=== PATIENT | female | born 1975 | race Caucasian/White ===

== ENCOUNTER 2018-06-09 06:26 | Day surgery (SDC) | payer BC ==
[~2018-06-09 06:26] MED LIST: Lactated Ringers 1,000 ML IV SCH; Sodium Chloride 0.9% 10 ML Syringe FLUSH PRN; Sodium Chloride 0.9% 2.5 ML Syringe FLUSH PRN; ceFAZolin 1 GM in Premix Bag 1 BAG IV ONE
--- NOTE | 2018-06-09 06:48 | PCM.PREANE ---
Preanesthetic Assessment - Procedure Proposed Procedure: excision lipoma left axilla - Anesthesia/Transfusion/Family Hx Anesthesia History: Prior Anesthesia Without Reaction (oral surgery (office), C- section and Tubal Ligation under spinal anesthesia. : No anesthesia issues noted. No history of General Anesthesia.) Family History of Anesthesia Reaction: No Transfusion History: No Prior Transfusion(s) - Review of Systems General: No Symptoms (vitiligo on back) Pulmonary: No Symptoms (smoker-one cigarette per day) Cardiovascular: No Symptoms Gastrointestinal: No Symptoms (NO GERD) Neurological: No Symptoms (history of depression--no meds at present, just counselling) Other: Reports: None - Physical Assessment NPO Status Date: 06/09/18 NPO Status Time: 04:30 (sip of water) Pulse: 48 O2 Sat by Pulse Oximetry: 100 Respiratory Rate: 15 Blood Pressure: 114/69 Temperature: 36.7 C Height: 1.65 m Weight: 72.575 kg ASA Class: 2 Mental Status: Alert & Oriented x3 Airway Class: Mallampati = 1 Dentition: Reports: Normal Dentition Thyro-Mental Finger Breadths: 2 Mouth Opening Finger Breadths: 3 ROM/Head Extension: Full Lungs: Clear to Auscultation, Normal Respiratory Effort Cardiovascular: Regular Rate, Regular Rhythm, No Murmurs - Allergies Allergies/Adverse Reactions: Allergies Allergy/AdvReac Type Severity Reaction Status Date / Time sulfamethoxazole Allergy Tachycardia Verified 06/06/18 15:37 [From ] trimethoprim [From ] Allergy Tachycardia Verified 06/06/18 15:37 - Blood Blood Available: No Product(s) Available: None - Anesthesia Plan Pre-Op Medication Ordered: None - Acknowledgements Anesthesia Type Planned: General Anesthesia (Plan: GA with LMA) Pt an Appropriate Candidate for the Planned Anesthesia: Yes Alternatives and Risks of Anesthesia Discussed w Pt/Guardian: Yes Pt/Guardian Understands and Agrees with Anesthesia Plan: Yes PreAnesthesia Questionnaire Genitourinary History: Reports: None [employer] History: Reports: Psychiatric History: Reports: Depression Dermatologic History: Reports: Other (See Below) Other Dermatologic History: hx of Vitaligo - Past Surgical History HEENT Surgical History: Reports: Oral Surgery Other HEENT Surgeries/Procedures: tooth removed Female Surgical History: Reports: Section, Tubal Ligation Dermatological Surgical History: Reports: Skin Biopsy - SUBSTANCE USE Smoking Status *Q: Current Every Day Smoker Tobacco Use Within Last Twelve Months: Cigarettes Days Per Week of Alcohol Use: 2 Recreational Drug Use History: No - HOME MEDS Home Medications: Home Meds . [No Known Home Meds] 06/06/18 [History] - CURRENT (IN HOUSE) MEDS Current Meds: Current Medications Lactated Ringer's (Ringers, Lactated) 1,000 mls @ 125 mls/hr IV ASDIRECTED SANA Sodium Chloride (Saline Flush) 10 ml FLUSH ASDIRECTED PRN PRN Reason: Keep Vein Open Sodium Chloride (Saline Flush) 2.5 ml FLUSH ASDIRECTED PRN PRN Reason: Keep Vein Open Discontinued Medications Cefazolin Sodium/Dextrose 1 gm (/ Premix) 50 mls @ 100 mls/hr IV ONETIME ONE Stop: 06/08/18 17:01
[2018-06-09] MEDS ORDERED: Midazolam 1 MG/ML 2 ML SDV ONE (07:27)
[2018-06-09] MEDS ORDERED: Ondansetron 4 MG/2 ML SDV ONE (07:27)
[2018-06-09] MEDS ORDERED: fentaNYL 100 MCG/2 ML SDV ONE (07:28)
[2018-06-09] MEDS ORDERED: Propofol 200 MG/20 ML SDV ONE (07:29)
[2018-06-09] MEDS ORDERED: Lidocaine 1% 20 ML MDV ONE (07:33)
[2018-06-09] MEDS ORDERED: Bupivacaine 0.5% 10 ML SDV ONE (07:33)
[2018-06-09] MEDS ORDERED: ePHEDrine 50 MG/ML SDV ONE (08:16)
[2018-06-09] MEDS ORDERED: Octyl 2-Cyanoacrylate 1 Tube ONE (08:39)
[2018-06-09] MEDS ORDERED: Dexamethasone 4 MG/ML 5 ML MDV ONE (08:44)
--- NOTE | 2018-06-09 09:11 | PCM.POSTAN ---
POST ANESTHESIA ASSESSMENT - MENTAL STATUS Mental Status: Alert, Oriented - VITAL SIGNS Pulse Rate: 61 SaO2: 99 Resp Rate: 16 Blood Pressure: 118/77 Temperature: 36.2 C - RESPIRATORY Respiratory Status: Respiratory Rate WNL, Airway Patent, O2 Saturation Stable - CARDIOVASCULAR CV Status: Pulse Rate WNL, Blood Pressure Stable - GASTROINTESTINAL GI Status: No Symptoms - PAIN Pain Score: 0 - POST OP HYDRATION Hydration Status: Adequate & Stable - OBSERVATIONS Free Text/Narrative:: awake and alert. Vitals stable. No pain, no nausea. Good post op phase I recovery.
--- NOTE | 2018-06-09 09:21 | PCM.OPNOTE ---
- General Post-Op/Procedure Note Date of Surgery/Procedure: 06/09/18 Operative Procedure(s): Excision left axillary lipoma Findings: 6 cm x 4.5 cm x 2 cm lipoma of left axilla Pre Op Diagnosis: Lipoma Post-Op Diagnosis: same Anesthesia Technique: General LMA Primary Surgeon: Polina Tee Condition: Good
--- NOTE | 2018-06-09 10:02 | PCM48HPAN ---
Post Anesthesia Note - EVALUATION WITHIN 48HRS OF ANESTHETIC Vital Signs in Normal Range: Yes Patient Participated in Evaluation: Yes Respiratory Function Stable: Yes Airway Patent: Yes Cardiovascular Function Stable: Yes Hydration Status Stable: Yes Pain Control Satisfactory: Yes Nausea and Vomiting Control Satisfactory: Yes Mental Status Recovered: Yes Pulse Rate: 61 Resp Rate: 15 Temperature: 36.2 C Blood Pressure: 118/77 - COMMENTS/OBSERVATIONS Free Text/Narrative:: no anesthesia problems
--- NOTE | 2018-06-10 12:38 | OR ---
SURGEON: ANISH LITTLE MD DATE OF PROCEDURE: 06/09/2018 PREOPERATIVE DIAGNOSIS: Left axillary lipoma. POSTOPERATIVE DIAGNOSIS: Left axillary lipoma. PROCEDURE PERFORMED: Excision of left axillary lipoma. ANESTHESIA: General LMA. FLUIDS: See anesthesia record. ESTIMATED BLOOD LOSS: 5 mL. FINDINGS: 6 x 4.5 x 2 cm, left axillary lipoma. COMPLICATIONS: None. INDICATIONS: The patient is a 42-year-old female who presents with a mass under her left axilla. This has been present for 10 years. An ultrasound was performed that showed a large lipoma. Given its symptomatic nature, we discussed the need for removal. The patient and I discussed the procedure, expected perioperative course as well as the risks including bleeding, infection, or damage to surrounding structures. The patient verbalized understanding and wishes to proceed. PROCEDURE IN DETAIL: The patient was brought into the OR and placed on the OR table in supine position. A time-out was completed verifying the patient's name, age, date of , allergies, and procedure to be performed. General LMA anesthesia was induced. The arm was placed in the sling and elevated right angle to the patient's body. The left axilla and left lateral chest wall as well as the upper arm were prepped and draped in usual standard fashion. The area overlying the mass was anesthetized with 1% lidocaine plain. At the end of the case, I anesthetized the area secondarily with 0.5% Marcaine plain. A 15 blade was used to make a 5 cm incision along the skin lines to the posterior axillary hairline. This incision was placed over the top of the mass. Cautery was used to dissect down to the level of the subcutaneous fat. I then bluntly dissected down to the lipoma. It abutted the latissimus dorsi muscle. Using gentle blunt dissection as well as sharp dissection with the Metzenbaum scissors, I carefully dissected lipoma from the surrounding subcutaneous fat. Once I had developed this plane, I then undermined the lesion. There was a small nerve that ran along the inferior edge of the lipoma. Great care was taken to preserve this nerve and to avoid any damage to it. The muscle was then peeled off the underlying muscular tissue and elevated. Once last attachments to the overlying subcutaneous fat were taken down, the mass was passed off the field. It was brought to the back table and measured. It measured 6 x 4.5 x 2 cm in size. It was sent to pathology, labeled as left axillary lipoma. The operative field was closely inspected. Hemostasis was achieved with electrocautery. The wound was irrigated copiously with normal saline. I then used interrupted 3-0 Vicryl sutures in the subcutaneous fat layers to close the wound. The skin was then closed with a running 4-0 Monocryl stitch. Dermabond and sterile dressings were applied. The patient tolerated the procedure well and was taken to the PACU in stable condition. JERO JOSHI /[id number]
== END 2018-06-09 09:50 | disposition home or self-care (01) ==
LOC: MW.SDS 06:26
PROVIDERS: ATTEND Surgery
DX: D17.1 Benign lipomatous neoplasm of skin and subcutaneous tissue of trunk (principal); F17.210 Nicotine dependence, cigarettes, uncomplicated; Z88.2 Allergy status to sulfonamides
CPT/HCPCS: 21552; 81025; A9270; J0690; J1100; J2250; J2405; J2704; J3010; J3490; J7120